=== PATIENT | male | born 1965 | race African-American/Black ===

== ENCOUNTER 2018-01-04 16:00 | Emergency (ER) | payer OTHER, SELFPAY ==
[2018-01-04] MEDS ORDERED: methylPREDNISolone Sod Succ/PF 125 MG/2 ML VIAL ONE (16:37)
[2018-01-04 16:49] LABS: #Eosinphils 0.6 thou/uL (0.0-0.7); #Lymphocytes 1.3 thou/uL (1.20-3.40); #Monocytes 0.6 thou/uL (0.11-0.59); #Neutrophils 2.7 thou/uL (1.40-6.50); %Basophils 0.8 % (0.0-1.0); %Eosinophils 11.3 % (0.0-10.0); %Lymphocytes 25.1 % (21.0-51.0); %Monocytes 10.6 % (0.0-10.0); %Neutrophils 52.2 % (42.0-75.0); Hemoglobin 15.8 g/dL (14.0-18.0); Mean Corpuscular HGB CONC 33.6 g/dL (32.0-36.0); Mean Corpuscular Hemoglobin 34.1 pg (27.0-31.0); Mean Platelet Volume 7.4 fL (7.4-10.4); Platelet Count 191 thou/uL (130-400); RBC Distribution Width 12.1 % (11.5-14.5); Red Blood Cell (RBC) Count 4.62 mill/uL (4.70-6.10); White Blood Cell (WBC) Count 5.2 thou/uL (4.8-10.8)
[2018-01-04 17:13] LABS: CKMB 1.6 ng/mL (0-6.6); Troponin I Less than 0.010 ng/mL (< 0.028)
[2018-01-04 17:16] LABS: ALT (SGPT) 14 U/L (8-55); AST (SGOT) 27 U/L (5-34); Albumin 3.7 g/dL (3.5-5.0); Alkaline Phosphatase 73 U/L (40-150); Anion Gap 17 mmol/L (10-20); BUN (Urea Nitrogen) 24 mg/dL (8.4-25.7); Bilirubin, Total 0.4 mg/dL (0.2-1.2); CK (CPK) 76 U/L (30-200); Calc. Creatinine Clearance 0 mL/min (70-130); Calcium 9.3 mg/dL (7.8-10.44); Carbon Dioxide 20 mmol/L (22-29); Chloride 107 mmol/L (98-107); Estimated GFR-MDRD 75; Globulin 3.1 g/dL (2.4-3.5); Glucose 195 mg/dL (70-105); Potassium 4.6 mmol/L (3.5-5.1); Protein, Total 6.8 g/dL (6.0-8.3); Sodium 139 mmol/L (136-145)
--- NOTE | 2018-01-04 17:25 | RAD ---
SINGLE VIEW OF THE CHEST: Comparison: 02-05-15 History: Shortness of breath. FINDINGS: Single view of the chest shows a normal sized cardiomediastinal silhouette. There is hyperexpansion o f the lungs which may be secondary to COPD. Bilateral perihilar fullness likely represents pulmonary vasculature. The bones are unremarkable. IMPRESSION: No evidence of acute cardiopulmonary disease. POS: [facility]
== END 2018-01-04 19:07 | disposition home or self-care (01) ==
LOC: ERS 16:00
DX: J98.01 Acute bronchospasm (principal); J40 Bronchitis, not specified as acute or chronic; I10 Essential (primary) hypertension; F17.210 Nicotine dependence, cigarettes, uncomplicated; Z71.6 Tobacco abuse counseling
CPT/HCPCS: 36415; 71045; 80053; 82550; 82553; 84484; 85025; 93005; 94640; 94760; 96374; 99406; J2930; J7620

== ENCOUNTER 2018-04-13 15:19 | Emergency (ER) | payer SELFPAY ==
[2018-04-13 16:15] LABS: #Lymphocytes 0.9 thou/uL (1.20-3.40); #Monocytes 0.7 thou/uL (0.11-0.59); #Neutrophils 7.3 thou/uL (1.40-6.50); %Basophils 0.2 % (0.0-1.0); %Eosinophils 0.3 % (0.0-10.0); %Lymphocytes 9.5 % (21.0-51.0); %Monocytes 8.1 % (0.0-10.0); %Neutrophils 81.9 % (42.0-75.0); Hemoglobin 17.7 g/dL (14.0-18.0); Mean Corpuscular HGB CONC 33.2 g/dL (32.0-36.0); Mean Corpuscular Hemoglobin 33.7 pg (27.0-31.0); Platelet Count 178 thou/uL (130-400); RBC Distribution Width 11.5 % (11.5-14.5); Red Blood Cell (RBC) Count 5.27 mill/uL (4.70-6.10); White Blood Cell (WBC) Count 8.9 thou/uL (4.8-10.8)
--- NOTE | 2018-04-13 16:33 | RAD ---
PORTABLE CHEST ONE VIEW: Date: 04-13-18 Time: 3:17 p.m. History: Hypotension, dyspnea. FINDINGS: Comparison made with exam of 01-04-18. The heart size is normal. Changes of COPD are again seen. No lobar consolidation, pneumothoraces or p leural effusions are identified. IMPRESSION: COPD. No acute process. POS: [facility]
[2018-04-13 16:37] LABS: ALT (SGPT) 22 U/L (8-55); AST (SGOT) 22 U/L (5-34); Albumin 4.7 g/dL (3.5-5.0); Alkaline Phosphatase 88 U/L (40-150); Anion Gap 24 mmol/L (10-20); BUN (Urea Nitrogen) 22 mg/dL (8.4-25.7); Bilirubin, Total 0.8 mg/dL (0.2-1.2); Calc. Creatinine Clearance 0 mL/min (70-130); Calcium 10.5 mg/dL (7.8-10.44); Carbon Dioxide 18 mmol/L (22-29); Chloride 101 mmol/L (98-107); Estimated GFR-MDRD 32; Globulin 3.6 g/dL (2.4-3.5); Glucose 113 mg/dL (70-105); Magnesium 2.6 mg/dL (1.6-2.6); Potassium 4.7 mmol/L (3.5-5.1); Protein, Total 8.3 g/dL (6.0-8.3); Sodium 138 mmol/L (136-145)
[2018-04-13 16:42] LABS: CKMB 3.5 ng/mL (0-6.6)
[2018-04-13 16:50] LABS: Troponin I Less than 0.010 ng/mL (< 0.028)
[2018-04-13 17:40] LABS: Amphetamine Not Detected (NotDetected); Barbiturates Screen Not Detected (NotDetected); Benzodiazepine Screen Not Detected (NotDetected); Cocaine Metabolite Screen Detected (NotDetected); Medtox Control Line Valid? VALID (VALID); Medtox Reader # READER 1; Methadone Not Detected (NotDetected); Methamphetamine Not Detected (NotDetected); Opiate Screen Not Detected (NotDetected); Oxycodone Screen Not Detected (NotDetected); Phencyclidine (PCP) Not Detected (NotDetected); THC/Cannabinoid Screen Not Detected (NotDetected); Tricyclic Screen Not Detected (NotDetected)
[2018-04-13 19:13] LABS: Troponin I Less than 0.010 ng/mL (< 0.028)
== END 2018-04-13 19:20 | disposition home or self-care (01) ==
LOC: ERS 15:19
DX: F14.10 Cocaine abuse, uncomplicated (principal); J45.909 Unspecified asthma, uncomplicated; I10 Essential (primary) hypertension; F17.210 Nicotine dependence, cigarettes, uncomplicated
CPT/HCPCS: 36415; 71045; 80053; 80306; 82553; 83735; 84484; 85025; 93005; 96360; 96361

== ENCOUNTER 2018-09-02 13:09 | Emergency (ER) | payer SELFPAY ==
[2018-09-02 13:52] LABS: #Eosinphils 0.3 thou/uL (0.0-0.7); #Lymphocytes 0.9 thou/uL (1.20-3.40); #Monocytes 0.4 thou/uL (0.11-0.59); #Neutrophils 1.5 thou/uL (1.40-6.50); %Basophils 0.2 % (0.0-1.0); %Eosinophils 8.8 % (0.0-10.0); %Lymphocytes 28.6 % (21.0-51.0); %Monocytes 14.2 % (0.0-10.0); %Neutrophils 48.3 % (42.0-75.0); Hemoglobin 17.5 g/dL (14.0-18.0); Platelet Count 159 thou/uL (130-400); RBC Distribution Width 11.5 % (11.5-14.5); Red Blood Cell (RBC) Count 5.31 mill/uL (4.70-6.10)
[2018-09-02 14:15] LABS: ALT (SGPT) 17 U/L (8-55); AST (SGOT) 32 U/L (5-34); Albumin 4.3 g/dL (3.5-5.0); Alkaline Phosphatase 73 U/L (40-150); Anion Gap 15 mmol/L (10-20); BUN (Urea Nitrogen) 17 mg/dL (8.4-25.7); Calc. Creatinine Clearance 0 mL/min (70-130); Calcium 9.5 mg/dL (7.8-10.44); Carbon Dioxide 26 mmol/L (22-29); Chloride 101 mmol/L (98-107); Estimated GFR-MDRD 77; Globulin 3.8 g/dL (2.4-3.5); Glucose 98 mg/dL (70-105); Protein, Total 8.1 g/dL (6.0-8.3); Sodium 138 mmol/L (136-145)
--- NOTE | 2018-09-02 14:44 | RAD ---
CHEST ONE VIEW: HISTORY: Shortness of breath, possibly chronic. COMPARISON: 04/13/2018 FINDINGS: Normal cardiac silhouette. Pulmonary vessels and hilum are normal. Costophrenic angles are clear. Lungs are hyperinflated. No consolidation or mass. No pneumothorax or osseous abnormalities. IMPRESSION: 1. No acute cardiopulmonary process. 2. Stable hyperinflation. POS: [facility]
--- NOTE | 2018-09-02 14:50 | RAD ---
TWO VIEWS RIGHT HIP: DATE: 09/02/2018. HISTORY: Right hip pain. This has been ongoing for 6-7 months. FINDINGS: There are a few lucencies seen within the region of the femoral head and neck junction as well as in the femoral head probably related to mild subchondral cystic changes. There is minimal joint space n arrowing, and these findings are likely attributable to mild osteoarthritis. There is no evidence of a fracture or dislocation involving the right hip. No other osseous abnormality. IMPRESSION: Minimal osteoarthritis right hip. No fracture or dislocation is seen. POS: [facility]
== END 2018-09-02 16:11 | disposition home or self-care (01) ==
LOC: ERS 13:09
DX: M25.551 Pain in right hip (principal); R09.81 Nasal congestion; F17.210 Nicotine dependence, cigarettes, uncomplicated; I10 Essential (primary) hypertension; J45.909 Unspecified asthma, uncomplicated
CPT/HCPCS: 36415; 71045; 80053; 85025

== ENCOUNTER 2022-08-01 07:46 | Emergency (ER) | payer SELFPAY ==
[2022-08-01] MEDS ORDERED: methylPREDNISolone Sod Succ/PF 125 MG/2 ML VIAL ONE (09:14)
[2022-08-01 09:48] LABS: Hemoglobin 17.9 g/dL (14.0-18.0); Mean Corpuscular HGB CONC 32.5 g/dL (32.0-36.0); Mean Corpuscular Hemoglobin 34.7 pg (27.0-31.0); Mean Platelet Volume 9.2 fL (7.4-10.4); Platelet Count 145 10x3/uL (130-400); RBC Distribution Width 12.4 % (11.5-14.5); Red Blood Cell (RBC) Count 5.17 mill/uL (4.70-6.10); White Blood Cell (WBC) Count 5.5 10x3/uL (4.8-10.8)
[2022-08-01 10:13] LABS: Eosinophils 4 % (0-10); Lymphocytes 12 % (21-51); MDiff Complete? YES; Macrocytosis SLIGHT = 6-15 cells (100X) (0-5/hpf); Monocytes 7 % (0-10); Neutrophil 66 % (42-75); Platelet Morphology Comment Appears Adequate; Reactive Lymphocytes 11 % (0-10)
[2022-08-01 10:25] LABS: Albumin 3.7 g/dL (3.5-5.0)
[2022-08-01 10:26] LABS: Calcium 9.2 mg/dL (7.8-10.44); Chloride 108 mmol/L (98-107); Sodium 141 mmol/L (136-145)
[2022-08-01 10:27] LABS: Globulin 2.5 g/dL (2.4-3.5); Glucose 77 mg/dL (70-105); Protein, Total 6.2 g/dL (6.0-8.3)
[2022-08-01 10:29] LABS: Anion Gap 16 mmol/L (10-20); Carbon Dioxide 22 mmol/L (22-29)
[2022-08-01 10:30] LABS: Alkaline Phosphatase 74 U/L (40-110); Calc. Creatinine Clearance 0 mL/min (70-130); Estimated GFR 100
[2022-08-01 10:31] LABS: BUN (Urea Nitrogen) 10 mg/dL (8.4-25.7)
[2022-08-01 10:32] LABS: AST (SGOT) 21 U/L (5-34)
[2022-08-01 10:33] LABS: ALT (SGPT) 20 U/L (8-55)
== END 2022-08-01 11:11 | disposition home or self-care (01) ==
LOC: ERS 07:46
DX: J44.1 Chronic obstructive pulmonary disease with (acute) exacerbation (principal); R06.00 Dyspnea, unspecified; M54.50 Low back pain, unspecified; I10 Essential (primary) hypertension; F17.210 Nicotine dependence, cigarettes, uncomplicated
CPT/HCPCS: 36415; 71045; 80053; 83880; 84484; 85025; 93005; 96374; J2930; J7620

== ENCOUNTER 2024-02-12 18:12 | Inpatient (IN) | payer SELFPAY ==
[~2024-02-12 18:12] MED LIST: Iopamidol-370 76% 500 ML MDV (1 ML CHARGE) ONE
[2024-02-12 18:47] LABS: #Basophils Less than 0.03 10x3/uL (0.0-0.2); %Basophils 0.4 % (0.0-1.0); %Eosinophils 6.9 % (0.0-10.0); %Lymphocytes 26.7 % (21.0-51.0); %Monocytes 9.1 % (0.0-10.0); %Neutrophils 56.7 % (42.0-75.0); Hematocrit 59.2 % (42.0-52.0); Hemoglobin 19.1 g/dL (14.0-18.0); Mean Corpuscular HGB CONC 32.3 g/dL (32.0-36.0); Mean Corpuscular Hemoglobin 32.4 pg (27.0-31.0); Mean Corpuscular Volume 100.5 fL (78.0-98.0); Mean Platelet Volume 10.7 fL (7.4-10.4); Platelet Count 155 10x3/uL (130-400); RBC Distribution Width 13.7 % (11.5-14.5); Red Blood Cell (RBC) Count 5.89 mill/uL (4.70-6.10)
[2024-02-12 18:58] LABS: INR-International Normal Ratio 1.1; Prothrombin Time 13.9 sec (12.0-14.7)
[2024-02-12 19:06] LABS: ALT (SGPT) 61 U/L (8-55); AST (SGOT) 44 U/L (5-34); Albumin 3.6 g/dL (3.5-5.0); Alkaline Phosphatase 84 U/L (40-110); Anion Gap 17 mmol/L (10-20); BUN (Urea Nitrogen) 23 mg/dL (8.4-25.7); CK (CPK) 68 U/L (30-200); Calc. Creatinine Clearance 0 mL/min (70-130); Calcium 9.6 mg/dL (7.8-10.44); Carbon Dioxide 28 mmol/L (22-29); Chloride 109 mmol/L (98-107); Estimated GFR 68; Globulin 2.9 g/dL (2.4-3.5); Glucose 161 mg/dL (70-105); Potassium 4.7 mmol/L (3.5-5.1); Protein, Total 6.5 g/dL (6.0-8.3); Sodium 149 mmol/L (136-145)
[2024-02-12 19:11] LABS: Lipase 7 U/L (8-78)
[2024-02-12] MEDS ORDERED: Furosemide 40 MG (4 mL) VIAL ONE (19:11)
[2024-02-12] MEDS ORDERED: methylPREDNISolone Sod Succ/PF 125 MG/2 ML VIAL ONE (19:11)
[2024-02-12 19:12] LABS: Acetaminophen Less than 10 mcg/mL (10.0-30.0); Alcohol Less than 10.0 mg/dL (Less than 10); Salicylate Less than 8.0 mg/dL (15.0-30.0)
[2024-02-12 19:14] LABS: Troponin I 0.037 ng/mL (< 0.028)
[2024-02-12] MEDS ORDERED: Ipratropium/Albuterol 3 ML NEB ONE (19:18)
[2024-02-12 19:23] LABS: Actual Bicarbonate (HCO3v) 28.6 mEq/L (22-28); Base Excess -0.2 mEq/L (-2.0 to +3.0); Calcium, Ionized (venous) 1.13 mmol/L (1.16-1.32); Chloride (VBG) 104 mmol/L (98-106); Hematocrit-VBG 52 % (42.0-52.0); Hemoglobin (Hb) 17.8 g/dL (13.1-17.2); Potassium (VBG) 4.98 mmol/L (3.70-5.30); Sodium 142 mmol/L (133-146); pH (venous) 7.277 (7.32-7.43)
[2024-02-12 19:48] LABS: Influenza A by NAA Not Detected (NotDetected); Influenza B by NAA Not Detected (NotDetected); SARS-CoV-2 NAA Rapid Test Not Detected (NotDetected)
[2024-02-12] MEDS ORDERED: Heparin 25,000 units/D5W 500 ML ONE (20:50)
[2024-02-12] MEDS ORDERED: Heparin 5,000 UNITS/ML VIAL ONE (21:02)
[2024-02-12] MEDS ORDERED: Ipratropium/Albuterol 3 ML NEB NEB PRN (21:41)
[2024-02-12] MEDS ORDERED: Lorazepam 2 MG/ML VIAL SLOW IVP PRN (21:42)
[2024-02-12] MEDS ORDERED: Heparin 10,000 UNITS/ 10 ML VIAL SLOW IVP SCH (21:45)
[2024-02-12] MEDS ORDERED: Heparin 25,000 units/D5W 500 ML IVPB SCH (21:45)
[2024-02-12] MEDS ORDERED: Electrolyte Replacement Protocol 1 EACH FS PRN (21:49)
[2024-02-12 23:13] VITALS: BMI 20.5
[2024-02-12] MEDS: Lactated Ringer's 1,000 ML IV SCH (23:18)
[2024-02-12] MEDS: Amlodipine 5 MG TAB PO SCH (23:19)
[2024-02-12] MEDS: Magnesium 2 GM/50 ML(in water) 2 GM in Premix 1 BAG IVPB SCH (23:19)
[2024-02-12 23:44] LABS: Hematocrit 58.7 % (42.0-52.0); Hemoglobin 18.5 g/dL (14.0-18.0); Platelet Count 142 10x3/uL (130-400)
[2024-02-12 23:52] LABS: Bacteria/HPF None Seen HPF (None Seen); Bilirubin Negative (Negative); Blood, Urine 1+ (Negative); Clarity Clear (Clear); Glucose, Urine (Dipstick) Normal (Negative); Ketone, Urine Negative (Negative); Leukocyte 75 Leu/uL (Negative); Nitrite Negative (Negative); Protein, Urine (Dipstick) Negative (Neg-Trace); RBC/HPF 0-3 HPF (0-3); Specific Gravity, Urine 1.012 (1.002-1.036); Squamous Epithelial None Seen HPF (0-3); Urobilinogen Normal mg/dL (Less than 2); pH, Urine 5.5 (5.0-9.0)
[2024-02-13 00:01] LABS: Amphetamine Not Detected (NotDetected); Barbiturates Screen Not Detected (NotDetected); Benzodiazepine Screen Not Detected (NotDetected); Cocaine Metabolite Screen Detected (NotDetected); Methadone Not Detected (NotDetected); Methamphetamine Not Detected (NotDetected); Opiate Screen Not Detected (NotDetected); Oxycodone Screen Not Detected (NotDetected); Phencyclidine (PCP) Not Detected (NotDetected); THC/Cannabinoid Screen Not Detected (NotDetected); Tricyclic Screen Not Detected (NotDetected)
[2024-02-13] MEDS: Ipratropium/Albuterol 3 ML NEB NEB SCH (00:06)
[2024-02-13 00:14] LABS: Lactic Acid 3.1 mmol/L (0.5-2.2)
[2024-02-13 00:15] LABS: PTT Greater than 250.0 sec (22.9-36.1)
[2024-02-13 00:23] LABS: Troponin I 0.036 ng/mL (< 0.028)
[2024-02-13] MEDS ORDERED: Nicotine 14 MG PATCH TD PRN (01:06)
[2024-02-13] MEDS ORDERED: Ondansetron PF 4 MG/2 ML Vial IVP PRN (01:06)
[2024-02-13 04:16] LABS: INR-International Normal Ratio 1.1; Prothrombin Time 14.1 sec (12.0-14.7)
[2024-02-13 04:17] LABS: PTT 31.8 sec (22.9-36.1)
[2024-02-13 04:19] LABS: D-Dimer Test 0.33 mcg/mL (0.27-0.43)
[2024-02-13 04:20] LABS: #Basophils Less than 0.03 10x3/uL (0.0-0.2); #Eosinphils Less than 0.03 10x3/uL (0.0-0.7); %Basophils 0.2 % (0.0-1.0); %Lymphocytes 9.1 % (21.0-51.0); %Monocytes 1.7 % (0.0-10.0); %Neutrophils 88.6 % (42.0-75.0); Hematocrit 55.7 % (42.0-52.0); Hemoglobin 17.6 g/dL (14.0-18.0); Mean Corpuscular HGB CONC 31.6 g/dL (32.0-36.0); Mean Corpuscular Hemoglobin 33.1 pg (27.0-31.0); Mean Corpuscular Volume 104.9 fL (78.0-98.0); Mean Platelet Volume 10.7 fL (7.4-10.4); Platelet Count 144 10x3/uL (130-400); RBC Distribution Width 13.4 % (11.5-14.5); Red Blood Cell (RBC) Count 5.31 mill/uL (4.70-6.10)
[2024-02-13 04:43] LABS: ALT (SGPT) 55 U/L (8-55); AST (SGOT) 28 U/L (5-34); Albumin 3.1 g/dL (3.5-5.0); Alkaline Phosphatase 69 U/L (40-110); Anion Gap 15 mmol/L (10-20); BUN (Urea Nitrogen) 20 mg/dL (8.4-25.7); Bilirubin, Total 0.7 mg/dL (0.2-1.2); Calc. Creatinine Clearance 76 mL/min (70-130); Calcium 8.9 mg/dL (7.8-10.44); Carbon Dioxide 30 mmol/L (22-29); Chloride 106 mmol/L (98-107); Estimated GFR 83; Globulin 2.6 g/dL (2.4-3.5); Glucose 226 mg/dL (70-105); Potassium 4.3 mmol/L (3.5-5.1); Protein, Total 5.7 g/dL (6.0-8.3); Sodium 147 mmol/L (136-145)
[2024-02-13 04:44] LABS: Troponin I 0.029 ng/mL (< 0.028)
[2024-02-13] MEDS: Famotidine/PF 20 mg/2ml Vial SLOW IVP SCH (08:40)
[2024-02-13] MEDS: Thiamine 100 MG TAB PO SCH (08:56)
[2024-02-13] MEDS: Folic Acid 1 MG TAB PO SCH (08:56)
[2024-02-13] MEDS: Cyanocobalamin (Vitamin B-12) 1,000 MCG TAB PO SCH (08:56)
[2024-02-13] MEDS: Amlodipine 5 MG TAB PO SCH (08:57)
[2024-02-13] MEDS: Famotidine 20 MG TAB PO SCH (08:57)
[2024-02-13] MEDS: guaiFENesin ER 600 MG TAB PO SCH (08:58)
[2024-02-13] MEDS: Enoxaparin 60 MG (0.6 mL) SYRINGE SC SCH ×2 (11:09→20:11)
[2024-02-13] MEDS: methylPREDNISolone Sod Succ 40 MG VIAL IVP SCH (17:36)
[2024-02-14 22:11] LABS: Hematocrit 56.9 % (42.0-52.0); Platelet Count 121 10x3/uL (130-400)
[2024-02-15] MEDS ORDERED: WARFARIN IVPB PRN (09:28)
[2024-02-15 14:06] LABS: Cardiolipin IgA Ab 2.6 APL-U/mL (<14 Negative); Cardiolipin IgG Ab 1.2 GPL-U/mL (<10 Negative); Cardiolipin IgM Ab Less than 0.9 MPL-U/mL (<10 Negative); EliA APS New Method **** NEW METHOD ****
[2024-02-15] MEDS: Warfarin Sodium 5 MG TAB PO SCH (17:37)
[2024-02-15] MEDS: Enoxaparin 80 MG (0.8 mL) SYRINGE SC SCH (20:28)
[2024-02-15] MEDS: methylPREDNISolone Sod Succ 40 MG VIAL IVP SCH (20:28)
[2024-02-16 05:47] LABS: INR-International Normal Ratio 1.1; Prothrombin Time 14.2 sec (12.0-14.7)
[2024-02-16] MEDS: Lactated Ringer's 1,000 ML IV SCH (22:11)
[2024-02-16] MEDS: hydrALAZINE 20 MG/ML VIAL SLOW IVP PRN (23:23)
[2024-02-17 05:31] LABS: INR-International Normal Ratio 1.3; PTT 30.5 sec (22.9-36.1); Prothrombin Time 15.8 sec (12.0-14.7)
[2024-02-17] MEDS: Warfarin Sodium 10 MG TAB PO SCH (16:24)
[2024-02-18 04:33] LABS: PTT 34.3 sec (22.9-36.1); Prothrombin Time 22.8 sec (12.0-14.7)
[2024-02-18] MEDS: predniSONE 20 MG TAB PO SCH (11:22)
[2024-02-18 11:54] LABS: HEX PHOS LA Tube 1 42.5 SEC; HEX PHOS LA Tube 2 41.1 SEC; Hexagonal Phospholipid Neut 1.4 SEC (0-8.0)
[2024-02-18 13:44] VITALS: BMI 21.3
[2024-02-18] MEDS: Warfarin Sodium 5 MG TAB PO SCH (16:24)
[2024-02-19 06:09] LABS: INR-International Normal Ratio 2.7; PTT 37.1 sec (22.9-36.1); Prothrombin Time 28.8 sec (12.0-14.7)
[2024-02-19] MEDS: predniSONE 20 MG TAB PO SCH (08:36)
[2024-02-20 08:39] LABS: INR-International Normal Ratio 2.4; PTT 34.5 sec (22.9-36.1); Prothrombin Time 25.9 sec (12.0-14.7)
[2024-02-20 11:57] LABS: #Basophils Less than 0.03 10x3/uL (0.0-0.2); %Basophils 0.1 % (0.0-1.0); %Eosinophils 1.8 % (0.0-10.0); %Lymphocytes 10.3 % (21.0-51.0); %Neutrophils 78.2 % (42.0-75.0); Hematocrit 52.9 % (42.0-52.0); Hemoglobin 16.7 g/dL (14.0-18.0); Mean Corpuscular HGB CONC 31.6 g/dL (32.0-36.0); Mean Corpuscular Hemoglobin 33.3 pg (27.0-31.0); Mean Corpuscular Volume 105.6 fL (78.0-98.0); Mean Platelet Volume 11.4 fL (7.4-10.4); Platelet Count 143 10x3/uL (130-400); Red Blood Cell (RBC) Count 5.01 mill/uL (4.70-6.10)
[2024-02-21 07:13] LABS: INR-International Normal Ratio 2.2; PTT 32.5 sec (22.9-36.1); Prothrombin Time 24.4 sec (12.0-14.7)
[2024-02-21] MEDS ORDERED: Warfarin Sodium 5 MG TAB PO SCH (09:23)
[2024-02-21] MEDS ORDERED: Warfarin Sodium 2.5 MG TAB PO SCH (09:30)
[2024-02-21] MEDS: Acetaminophen 325 MG TAB PO PRN (09:43)
[2024-02-21] MEDS: Warfarin Sodium 7.5 MG TAB PO SCH (17:09)
[2024-02-21 20:57] LABS: RBC/HPF 21-50 HPF (0-3); Squamous Epithelial 0-3 HPF (0-3); WBC/HPF Greater than 50 HPF (0-3)
[2024-02-21 21:03] LABS: Bacteria/HPF 4+ HPF (None Seen)
[2024-02-22 06:06] LABS: INR-International Normal Ratio 2.3; PTT 36.7 sec (22.9-36.1)
[2024-02-22 09:51] LABS: Bilirubin Negative (Negative); Clarity Turbid (Clear); Glucose, Urine (Dipstick) Negative (Negative); Ketone, Urine Negative (Negative); Leukocyte 500 Leu/uL (Negative); Nitrite 2+ (Negative); Protein, Urine (Dipstick) 10 mg/dL (Neg-Trace); Specific Gravity, Urine 1.012 (1.002-1.036); Urobilinogen 3 mg/dL (Less than 2)
[2024-02-22 09:52] LABS: Blood, Urine 2+ (Negative)
[2024-02-22] MEDS: cefTRIAXone\\ROCEPHIN 2 GM in Sodium Chloride 0.9% 100 ML IVPB SCH (12:20)
[2024-02-22] MEDS: Ondansetron ODT 4 MG TAB PO PRN (21:35)
[2024-02-22 21:36] LABS: Anion Gap 17 mmol/L (10-20); BUN (Urea Nitrogen) 24 mg/dL (8.4-25.7); Calc. Creatinine Clearance 109 mL/min (70-130); Calcium 8.9 mg/dL (7.8-10.44); Carbon Dioxide 28 mmol/L (22-29); Chloride 96 mmol/L (98-107); Estimated GFR 104; Glucose 106 mg/dL (70-105); Magnesium 1.9 mg/dL (1.6-2.6); Potassium 4.6 mmol/L (3.5-5.1); Sodium 136 mmol/L (136-145)
[2024-02-22] MEDS: Lidocaine 2% Viscous Solution 10 ML, Aluminum & Magnesium Hydroxide 30 ML SSW SCH (21:36)
[2024-02-22 21:48] LABS: Troponin I 0.022 ng/mL (< 0.028)
[2024-02-23 02:39] LABS: Actual Bicarbonate (HCO3v) 30.8 mEq/L (22-28); Base Excess 3.8 mEq/L (-2.0 to +3.0); Calcium, Ionized (venous) 1.15 mmol/L (1.16-1.32); Chloride (VBG) 94 mmol/L (98-106); Hematocrit-VBG 46 % (42.0-52.0); Hemoglobin (Hb) 15.8 g/dL (13.1-17.2); Potassium (VBG) 4.48 mmol/L (3.70-5.30); Sodium 136 mmol/L (133-146); pH (venous) 7.363 (7.32-7.43)
[2024-02-23] MEDS: Magnesium 2 GM/50 ML(in water) 2 GM in Premix 1 BAG IVPB SCH (02:55)
[2024-02-23 05:23] LABS: #Basophils Less than 0.03 10x3/uL (0.0-0.2); %Basophils 0.1 % (0.0-1.0); %Eosinophils 3.3 % (0.0-10.0); %Lymphocytes 11.7 % (21.0-51.0); %Neutrophils 70.2 % (42.0-75.0); Hematocrit 48.3 % (42.0-52.0); Hemoglobin 15.4 g/dL (14.0-18.0); Mean Corpuscular HGB CONC 31.9 g/dL (32.0-36.0); Mean Corpuscular Hemoglobin 33.1 pg (27.0-31.0); Mean Corpuscular Volume 103.9 fL (78.0-98.0); Mean Platelet Volume 10.5 fL (7.4-10.4); Platelet Count 138 10x3/uL (130-400); RBC Distribution Width 13.1 % (11.5-14.5); Red Blood Cell (RBC) Count 4.65 mill/uL (4.70-6.10)
[2024-02-23 05:35] LABS: INR-International Normal Ratio 2.3; PTT 36.7 sec (22.9-36.1)
[2024-02-23 05:57] LABS: Magnesium 2.5 mg/dL (1.6-2.6)
[2024-02-23] MEDS: Apixaban 5 MG TAB PO SCH (20:52)
[2024-02-23] MEDS: Cephalexin 250 MG CAP PO SCH (20:52)
[2024-02-24 05:10] LABS: #Basophils 0.03 10x3/uL (0.0-0.2); %Basophils 0.4 % (0.0-1.0); %Eosinophils 3.2 % (0.0-10.0); %Lymphocytes 13.4 % (21.0-51.0); %Monocytes 14.1 % (0.0-10.0); %Neutrophils 67.3 % (42.0-75.0); Hematocrit 49.1 % (42.0-52.0); Hemoglobin 15.9 g/dL (14.0-18.0); Mean Corpuscular HGB CONC 32.4 g/dL (32.0-36.0); Mean Corpuscular Hemoglobin 32.6 pg (27.0-31.0); Mean Corpuscular Volume 100.6 fL (78.0-98.0); Platelet Count 152 10x3/uL (130-400); RBC Distribution Width 12.9 % (11.5-14.5); Red Blood Cell (RBC) Count 4.88 mill/uL (4.70-6.10)
[2024-02-24 05:25] LABS: INR-International Normal Ratio 2.4; Prothrombin Time 26.3 sec (12.0-14.7)
[2024-02-24 05:26] LABS: PTT 43.6 sec (22.9-36.1)
[2024-02-24 07:21] VITALS: TEMP 98.3
[2024-02-24 15:11] VITALS: BP 113/75
== END 2024-02-24 17:41 | disposition home or self-care (01) | DRG 175 ==
LOC: ERS 18:12 → CCU 20:37 → 2NO 22:24 → MSONC 02-15 15:03
PROVIDERS: ADMIT Student in an Organized Health Care Education/Training Program; ATTEND Internal Medicine Critical Care Medicine
DX: I26.99 Other pulmonary embolism without acute cor pulmonale (principal); I21.4 Non-ST elevation (NSTEMI) myocardial infarction; J96.01 Acute respiratory failure with hypoxia; Z59.00 Homelessness unspecified; E87.1 Hypo-osmolality and hyponatremia; E87.20 Acidosis, unspecified; N39.0 Urinary tract infection, site not specified; E87.0 Hyperosmolality and hypernatremia; F17.210 Nicotine dependence, cigarettes, uncomplicated; R31.9 Hematuria, unspecified; J47.9 Bronchiectasis, uncomplicated; B96.20 Unspecified Escherichia coli [E. coli] as the cause of diseases classified elsewhere; F14.10 Cocaine abuse, uncomplicated; J44.9 Chronic obstructive pulmonary disease, unspecified; I27.20 Pulmonary hypertension, unspecified; I11.9 Hypertensive heart disease without heart failure; G47.33 Obstructive sleep apnea (adult) (pediatric); Z98.890 Other specified postprocedural states; Z91.148 Patient's other noncompliance with medication regimen for other reason; Z71.51 Drug abuse counseling and surveillance of drug abuser
CPT/HCPCS: 36415; 36416; 71045; 71275; 76770; 80048; 80053; 80306; 80307; 81001; 81015; 82550; 82805; 83090; 83605; 83690; 83735; 83880; 84484; 85014; 85018; 85025; 85049; 85300; 85303; 85305; 85307; 85598; 85610; 85730; 86147; 87040; 87077; 87081; 87086; 87186; 87430; 93005; 93010; 93306; 93923; 93970; 94640; 94760; 96374; 96375; J0360; J0696; J1644; J1650; J1940; J2920; J2930; J3475; J3490; J7120; J7512; J7620; Q0162; Q9967

== ENCOUNTER 2024-08-15 12:58 | Emergency (ER) | payer SELFPAY ==
[2024-08-15] MEDS ORDERED: Iopamidol-370 76% 500 ML MDV (1 ML CHARGE) ONE (13:56)
[2024-08-15 14:17] LABS: #Basophils Less than 0.03 10x3/uL (0.0-0.2); %Basophils 0.5 % (0.0-1.0); %Eosinophils 6.2 % (0.0-10.0); %Lymphocytes 21.6 % (21.0-51.0); %Monocytes 10.5 % (0.0-10.0); Hematocrit 56.9 % (42.0-52.0); Hemoglobin 18.2 g/dL (14.0-18.0); Mean Corpuscular Hemoglobin 31.9 pg (27.0-31.0); Mean Corpuscular Volume 99.8 fL (78.0-98.0); Mean Platelet Volume 10.2 fL (7.4-10.4); Platelet Count 180 10x3/uL (130-400); RBC Distribution Width 13.2 % (11.5-14.5)
[2024-08-15 14:33] LABS: ALT (SGPT) 20 U/L (8-55); AST (SGOT) 18 U/L (5-34); Albumin 3.2 g/dL (3.5-5.0); Alkaline Phosphatase 77 U/L (40-110); Anion Gap 10 mmol/L (10-20); BUN (Urea Nitrogen) 15 mg/dL (8.4-25.7); Bilirubin, Total 0.7 mg/dL (0.2-1.2); Calc. Creatinine Clearance 0 mL/min (70-130); Calcium 8.6 mg/dL (7.8-10.44); Carbon Dioxide 27 mmol/L (22-29); Chloride 103 mmol/L (98-107); Estimated GFR 79; Globulin 2.7 g/dL (2.4-3.5); Glucose 103 mg/dL (70-105); Magnesium 2.1 mg/dL (1.6-2.6); Potassium 3.5 mmol/L (3.5-5.1); Protein, Total 5.9 g/dL (6.0-8.3); Sodium 136 mmol/L (136-145)
[2024-08-15 14:34] LABS: Troponin I Less than 0.010 ng/mL (< 0.028)
== END 2024-08-15 20:23 | disposition home or self-care (01) ==
LOC: ERS 12:58
DX: J44.9 Chronic obstructive pulmonary disease, unspecified (principal); I10 Essential (primary) hypertension; F17.210 Nicotine dependence, cigarettes, uncomplicated; Z59.00 Homelessness unspecified
CPT/HCPCS: 36415; 71275; 80053; 83735; 83880; 84484; 85025; 93005

== ENCOUNTER 2025-03-29 14:58 | Inpatient (IN) | payer OTHER ==
[2025-03-29 15:30] LABS: Actual Bicarbonate (HCO3v) 28.7 mEq/L (22-28); Analyzer IN Cardio ER; Base Excess 2.0 mEq/L (-2.0 to +3.0); Calcium, Ionized (venous) 1.14 mmol/L (1.16-1.32); Chloride (VBG) 107 mmol/L (98-106); Hematocrit-VBG 57 % (42.0-52.0); Hemoglobin (Hb) 19.4 g/dL (13.1-17.2); Potassium (VBG) 4.20 mmol/L (3.70-5.30); Sodium 147 mmol/L (133-146)
[2025-03-29 15:47] LABS: #Basophils Less than 0.03 10x3/uL (0.0-0.2); #Eosinophils 0.11 10x3/uL (0.0-0.7); #Monocytes 0.27 10x3/uL (0.11-0.59); #Neutrophils 3.43 10x3/uL (1.40-6.50); %Basophils 0.2 % (0.0-1.0); %Eosinophils 2.4 % (0.0-10.0); %Lymphocytes 17.1 % (21.0-51.0); %Monocytes 5.9 % (0.0-10.0); %Neutrophils 74.4 % (42.0-75.0); Hematocrit 56.7 % (42.0-52.0); Hemoglobin 18.0 g/dL (14.0-18.0); Mean Corpuscular Hemoglobin 32.6 pg (27.0-31.0); Mean Corpuscular Volume 102.7 fL (78.0-98.0); Platelet Count 152 10x3/uL (130-400); Red Blood Cell (RBC) Count 5.52 mill/uL (4.70-6.10); White Blood Cell (WBC) Count 4.61 10x3/uL (4.8-10.8)
[2025-03-29 15:51] LABS: ALT (SGPT) 51 U/L (Less than 45); AST (SGOT) 34 U/L (11-34); Albumin 3.5 g/dL (3.1-4.5); Alkaline Phosphatase 69 U/L (40-110); Anion Gap 15 mmol/L (10-20); BUN (Urea Nitrogen) 20 mg/dL (8.4-25.7); Bilirubin, Total 0.9 mg/dL (0.3-1.2); Calc. Creatinine Clearance 0 mL/min (70-130); Calcium 8.5 mg/dL (7.8-10.44); Carbon Dioxide 26 mmol/L (22-29); Chloride 110 mmol/L (98-107); Globulin 2.5 g/dL (2.4-3.5); Glucose 155 mg/dL (70-105); Magnesium 1.8 mg/dL (1.6-2.6); Potassium 3.8 mmol/L (3.5-5.1); Sodium 147 mmol/L (136-145)
[2025-03-29 15:54] LABS: Troponin I 0.190 ng/mL (< 0.028)
[2025-03-29 18:49] LABS: INR-International Normal Ratio 1.2; PTT 30.2 sec (22.9-36.1); Prothrombin Time 15.2 sec (12.0-14.7)
[2025-03-29 18:50] LABS: Acetaminophen Less than 10 mcg/mL (Less than 10); Salicylate Less than 8.0 mg/dL (Less than 8.0)
[2025-03-29] MEDS ORDERED: Enoxaparin 80 MG (0.8 mL) SYRINGE ONE (18:57)
[2025-03-29] MEDS ORDERED: Acetaminophen 325 MG TAB PO PRN (20:55)
[2025-03-29] MEDS ORDERED: Ondansetron PF 4 MG/2 ML Vial IVP PRN (20:55)
[2025-03-29] MEDS ORDERED: Senokot S 8.6-50 MG TAB PO PRN (20:55)
[2025-03-29] MEDS ORDERED: Albuterol 2.5 MG (3 mL) NEB NEB PRN (21:00)
[2025-03-29] MEDS ORDERED: Electrolyte Replacement Protocol 1 EACH FS SCH (21:00)
[2025-03-29] MEDS ORDERED: Benzonatate 100 MG CAP PO PRN (21:02)
[2025-03-29] MEDS: Furosemide 40 MG (4 mL) VIAL SLOW IVP SCH (22:33)
[2025-03-29] MEDS: Apixaban 5 MG TAB PO SCH (22:34)
[2025-03-29 23:19] LABS: Cocaine Metabolite Screen PRELIM POSITIVE (Negative); THC/Cannabinoid Screen Negative (Negative); Tricyclic Screen Negative (Negative)
[2025-03-30 01:26] LABS: Troponin I 0.238 ng/mL (< 0.028)
[2025-03-30 03:53] LABS: #Basophils Less than 0.03 10x3/uL (0.0-0.2); #Eosinophils Less than 0.03 10x3/uL (0.0-0.7); #Monocytes 0.08 10x3/uL (0.11-0.59); #Neutrophils 3.62 10x3/uL (1.40-6.50); %Basophils 0.2 % (0.0-1.0); %Eosinophils 0.2 % (0.0-10.0); %Lymphocytes 11.0 % (21.0-51.0); %Monocytes 1.9 % (0.0-10.0); %Neutrophils 86.7 % (42.0-75.0); Hematocrit 56.8 % (42.0-52.0); Hemoglobin 18.3 g/dL (14.0-18.0); Mean Corpuscular Hemoglobin 32.7 pg (27.0-31.0); Mean Corpuscular Volume 101.6 fL (78.0-98.0); Platelet Count 141 10x3/uL (130-400); Red Blood Cell (RBC) Count 5.59 mill/uL (4.70-6.10); White Blood Cell (WBC) Count 4.18 10x3/uL (4.8-10.8)
[2025-03-30 04:13] LABS: ALT (SGPT) 54 U/L (Less than 45); Albumin 3.4 g/dL (3.1-4.5); Alkaline Phosphatase 64 U/L (40-110); Anion Gap 15 mmol/L (10-20); BUN (Urea Nitrogen) 19 mg/dL (8.4-25.7); Bilirubin, Total 0.9 mg/dL (0.3-1.2); Calc. Creatinine Clearance 79 mL/min (70-130); Calcium 8.5 mg/dL (7.8-10.44); Carbon Dioxide 31 mmol/L (22-29); Cardiac Risk 3.7 (Less than 4.5); Chloride 104 mmol/L (98-107); Cholesterol 159 mg/dl (< 200 Desired); Globulin 2.5 g/dL (2.4-3.5); Glucose 158 mg/dL (70-105); HDL Cholesterol 43 mg/dL (>60 Neg Risk); LDL Cholesterol, Calculated 104 mg/dL; Magnesium 1.6 mg/dL (1.6-2.6); Potassium 3.6 mmol/L (3.5-5.1); Sodium 146 mmol/L (136-145); Triglycerides 62 mg/dL (Less than 150)
[2025-03-30 04:23] LABS: Troponin I 0.227 ng/mL (< 0.028)
[2025-03-30 04:27] LABS: AST (SGOT) 35 U/L (11-34)
[2025-03-30] MEDS: Magnesium 2 GM/50 ML(in water) 2 GM in Premix 1 BAG IVPB SCH (06:30)
[2025-03-30] MEDS: Enoxaparin 60 MG (0.6 mL) SYRINGE SC SCH (08:42)
[2025-03-30] MEDS: Aspirin Chewable 81 MG TAB PO SCH (08:42)
[2025-03-30] MEDS: Thiamine 100 MG TAB PO SCH (08:43)
[2025-04-01 07:59] LABS: #Basophils Less than 0.03 10x3/uL (0.0-0.2); #Eosinophils Less than 0.03 10x3/uL (0.0-0.7); #Monocytes 0.28 10x3/uL (0.11-0.59); #Neutrophils 11.29 10x3/uL (1.40-6.50); %Basophils 0.1 % (0.0-1.0); %Eosinophils 0.0 % (0.0-10.0); %Lymphocytes 3.0 % (21.0-51.0); %Monocytes 2.3 % (0.0-10.0); %Neutrophils 94.1 % (42.0-75.0); Hematocrit 56.2 % (42.0-52.0); Hemoglobin 17.8 g/dL (14.0-18.0); Mean Corpuscular Hemoglobin 32.9 pg (27.0-31.0); Mean Corpuscular Volume 103.9 fL (78.0-98.0); Platelet Count 145 10x3/uL (130-400); Red Blood Cell (RBC) Count 5.41 mill/uL (4.70-6.10); White Blood Cell (WBC) Count 12.00 10x3/uL (4.8-10.8)
[2025-04-01] MEDS: Enoxaparin 40 MG (0.4 mL) SYRINGE SC SCH (08:00)
[2025-04-01 08:18] LABS: Anion Gap 12 mmol/L (10-20); BUN (Urea Nitrogen) 22 mg/dL (8.4-25.7); Calc. Creatinine Clearance 104 mL/min (70-130); Carbon Dioxide 34 mmol/L (22-29); Chloride 103 mmol/L (98-107); Potassium 4.5 mmol/L (3.5-5.1); Sodium 144 mmol/L (136-145)
[2025-04-01 08:19] LABS: Calcium 8.9 mg/dL (7.8-10.44); Glucose 125 mg/dL (70-105)
[2025-04-01] MEDS: Calcium Carbonate 500 MG ChewTAB PO PRN (10:37)
[2025-04-02 06:44] VITALS: BMI 19.2
[2025-04-03 12:13] VITALS: TEMP 97.3
[2025-04-03 13:41] VITALS: BP 157/110
== END 2025-04-03 15:47 | disposition home or self-care (01) | DRG 280 ==
LOC: SUATTDRO 14:58 → ERS 14:58 → IMCU/EMU 20:20 → 2NO 03-30 21:24
PROVIDERS: ADMIT Family Medicine; ATTEND Family Medicine
DX: I11.0 Hypertensive heart disease with heart failure (principal); I50.33 Acute on chronic diastolic (congestive) heart failure; I21.A1 Myocardial infarction type 2; J96.21 Acute and chronic respiratory failure with hypoxia; E87.0 Hyperosmolality and hypernatremia; J44.1 Chronic obstructive pulmonary disease with (acute) exacerbation; Z59.00 Homelessness unspecified; F17.210 Nicotine dependence, cigarettes, uncomplicated; F12.10 Cannabis abuse, uncomplicated; F14.10 Cocaine abuse, uncomplicated; E87.8 Other disorders of electrolyte and fluid balance, not elsewhere classified; Z71.51 Drug abuse counseling and surveillance of drug abuser; Z86.711 Personal history of pulmonary embolism; Z86.718 Personal history of other venous thrombosis and embolism
CPT/HCPCS: 36415; 36416; 71045; 71275; 80048; 80053; 80061; 80306; 80307; 82805; 83036; 83735; 83880; 84484; 85025; 85610; 85730; 93005; 93306; 93798; 94644; 94660; J1650; J1940; J2919; J3475; J7620; Q9967

== ENCOUNTER 2025-05-22 14:45 | Inpatient (IN) | payer OTHER ==
[2025-05-22 15:22] LABS: #Basophils Less than 0.03 10x3/uL (0.0-0.2); #Eosinophils 0.24 10x3/uL (0.0-0.7); #Monocytes 0.52 10x3/uL (0.11-0.59); #Neutrophils 2.86 10x3/uL (1.40-6.50); %Basophils 0.4 % (0.0-1.0); %Eosinophils 5.0 % (0.0-10.0); %Lymphocytes 23.5 % (21.0-51.0); %Monocytes 10.9 % (0.0-10.0); %Neutrophils 60.0 % (42.0-75.0); Hematocrit 53.1 % (42.0-52.0); Hemoglobin 16.3 g/dL (14.0-18.0); Mean Corpuscular Hemoglobin 32.1 pg (27.0-31.0); Mean Corpuscular Volume 104.7 fL (78.0-98.0); Platelet Count 196 10x3/uL (130-400); Red Blood Cell (RBC) Count 5.07 mill/uL (4.70-6.10); White Blood Cell (WBC) Count 4.77 10x3/uL (4.8-10.8)
[2025-05-22 15:35] LABS: Actual Bicarbonate (HCO3v) 24.9 mEq/L (22-28); Base Excess 0.2 mEq/L (-2.0 to +3.0); Calcium, Ionized (venous) 1.05 mmol/L (1.16-1.32); Chloride (VBG) 107 mmol/L (98-106); Hematocrit-VBG 52 % (42.0-52.0); Hemoglobin (Hb) 17.6 g/dL (13.1-17.2); Potassium (VBG) 3.75 mmol/L (3.70-5.30); Sodium 144 mmol/L (133-146)
[2025-05-22 15:48] LABS: ALT (SGPT) 24 U/L (Less than 45); AST (SGOT) 25 U/L (11-34); Albumin 3.1 g/dL (3.1-4.5); Alkaline Phosphatase 67 U/L (40-110); Anion Gap 16 mmol/L (10-20); BUN (Urea Nitrogen) 16 mg/dL (8.4-25.7); Bilirubin, Total 0.6 mg/dL (0.3-1.2); Calc. Creatinine Clearance 0 mL/min (70-130); Calcium 9.0 mg/dL (7.8-10.44); Carbon Dioxide 22 mmol/L (22-29); Chloride 109 mmol/L (98-107); Globulin 2.6 g/dL (2.4-3.5); Glucose 137 mg/dL (70-105); Potassium 3.7 mmol/L (3.5-5.1); Sodium 143 mmol/L (136-145)
[2025-05-22] MEDS ORDERED: Albuterol 2.5 MG (0.5 mL) NEB ONE (16:07)
[2025-05-22] MEDS ORDERED: Ipratropium Bromide 2.5 ml Neb ONE (16:07)
[2025-05-22] MEDS ORDERED: Furosemide 20 MG (2 mL) VIAL ONE (16:22)
[2025-05-22] MEDS ORDERED: Aspirin Chewable 81 MG TAB ONE (16:23)
[2025-05-22] MEDS ORDERED: Guaifenesin DM 100-10/5 ML UDCUP PO PRN (21:24)
[2025-05-22] MEDS ORDERED: Ondansetron PF 4 MG/2 ML Vial IVP PRN (21:24)
[2025-05-22] MEDS ORDERED: Senokot S 8.6-50 MG TAB PO PRN (21:24)
[2025-05-22] MEDS ORDERED: Electrolyte Replacement Protocol 1 EACH FS PRN (21:24)
[2025-05-22 23:04] VITALS: BMI 17.6
[2025-05-22] MEDS: Acetaminophen 325 MG TAB PO SCH (23:45)
[2025-05-23 01:18] LABS: Influenza A by NAA Not Detected (NotDetected); Influenza B by NAA Not Detected (NotDetected); RSV by NAA Not Detected (NotDetected); SARS-CoV-2 NAA Rapid Test Not Detected (NotDetected)
[2025-05-23 04:48] LABS: #Basophils Less than 0.03 10x3/uL (0.0-0.2); #Eosinophils Less than 0.03 10x3/uL (0.0-0.7); #Monocytes 0.33 10x3/uL (0.11-0.59); #Neutrophils 5.69 10x3/uL (1.40-6.50); %Basophils 0.0 % (0.0-1.0); %Eosinophils 0.0 % (0.0-10.0); %Lymphocytes 6.9 % (21.0-51.0); %Monocytes 5.1 % (0.0-10.0); %Neutrophils 87.7 % (42.0-75.0); Hematocrit 54.9 % (42.0-52.0); Hemoglobin 16.7 g/dL (14.0-18.0); Mean Corpuscular Hemoglobin 31.9 pg (27.0-31.0); Mean Corpuscular Volume 104.8 fL (78.0-98.0); Platelet Count 195 10x3/uL (130-400); Red Blood Cell (RBC) Count 5.24 mill/uL (4.70-6.10); White Blood Cell (WBC) Count 6.49 10x3/uL (4.8-10.8)
[2025-05-23 05:06] LABS: ALT (SGPT) 20 U/L (Less than 45); AST (SGOT) 18 U/L (11-34); Albumin 2.9 g/dL (3.1-4.5); Alkaline Phosphatase 72 U/L (40-110); Anion Gap 15 mmol/L (10-20); BUN (Urea Nitrogen) 17 mg/dL (8.4-25.7); Bilirubin, Total 0.5 mg/dL (0.3-1.2); Calc. Creatinine Clearance 74 mL/min (70-130); Calcium 8.9 mg/dL (7.8-10.44); Carbon Dioxide 28 mmol/L (22-29); Cardiac Risk 3.6 (Less than 4.5); Chloride 105 mmol/L (98-107); Cholesterol 153 mg/dl (< 200 Desired); Globulin 2.7 g/dL (2.4-3.5); Glucose 154 mg/dL (70-105); HDL Cholesterol 43 mg/dL (>60 Neg Risk); LDL Cholesterol, Calculated 96 mg/dL; Magnesium 1.8 mg/dL (1.6-2.6); Potassium 3.9 mmol/L (3.5-5.1); Sodium 144 mmol/L (136-145); Triglycerides 72 mg/dL (Less than 150)
[2025-05-23] MEDS: Magnesium 2 GM/50 ML(in water) Premix IVPB SCH (05:40)
[2025-05-23] MEDS: Enoxaparin 40 MG (0.4 mL) SYRINGE SC SCH (09:30)
[2025-05-23] MEDS: cefTRIAXone\\ROCEPHIN 1 GM in Sodium Chloride 0.9% 100 ML IVPB SCH (12:21)
[2025-05-23 17:54] LABS: Cocaine Metabolite Screen PRELIM POSITIVE (Negative); THC/Cannabinoid Screen Negative (Negative); Tricyclic Screen Negative (Negative)
[2025-05-23 19:05] LABS: Legionella Urinary Ag Negative (Negative); Strep pneumo Urine Ag NEGATIVE (NEGATIVE)
[2025-05-23] MEDS ORDERED: Acetaminophen 325 MG TAB PO PRN (19:15)
[2025-05-23] MEDS: Cyanocobalamin (Vitamin B-12) 1,000 MCG TAB PO SCH (20:59)
[2025-05-23] MEDS: Melatonin 3 MG TAB PO PRN (20:59)
[2025-05-23] MEDS: Folic Acid 1 MG TAB PO SCH (21:00)
[2025-05-23] MEDS: Famotidine 20 MG TAB PO SCH (21:01)
[2025-05-23] MEDS: Multivit, Therapeutic 1 TAB PO SCH (21:01)
[2025-05-24 06:15] LABS: #Basophils Less than 0.03 10x3/uL (0.0-0.2); #Eosinophils Less than 0.03 10x3/uL (0.0-0.7); #Monocytes 0.22 10x3/uL (0.11-0.59); #Neutrophils 8.66 10x3/uL (1.40-6.50); %Basophils 0.1 % (0.0-1.0); %Eosinophils 0.0 % (0.0-10.0); %Lymphocytes 4.7 % (21.0-51.0); %Monocytes 2.3 % (0.0-10.0); %Neutrophils 92.5 % (42.0-75.0); Hematocrit 51.0 % (42.0-52.0); Hemoglobin 15.7 g/dL (14.0-18.0); Mean Corpuscular Hemoglobin 32.0 pg (27.0-31.0); Mean Corpuscular Volume 104.1 fL (78.0-98.0); Platelet Count 181 10x3/uL (130-400); Red Blood Cell (RBC) Count 4.90 mill/uL (4.70-6.10); White Blood Cell (WBC) Count 9.37 10x3/uL (4.8-10.8)
[2025-05-24 06:30] LABS: Anion Gap 13 mmol/L (10-20); BUN (Urea Nitrogen) 21 mg/dL (8.4-25.7); Calc. Creatinine Clearance 75 mL/min (70-130); Calcium 8.9 mg/dL (7.8-10.44); Carbon Dioxide 28 mmol/L (22-29); Chloride 106 mmol/L (98-107); Glucose 163 mg/dL (70-105); Magnesium 1.8 mg/dL (1.6-2.6); Potassium 5.1 mmol/L (3.5-5.1); Sodium 142 mmol/L (136-145)
[2025-05-24] MEDS: Magnesium 2 GM/50 ML(in water) 2 GM in Premix 1 BAG IVPB SCH (07:04)
[2025-05-24] MEDS: dilTIAZem 30 MG TAB PO SCH ×2 (07:04→12:30)
[2025-05-24] MEDS: Aspirin 81 mg Enteric Coated Tablet PO SCH (09:00)
[2025-05-24] MEDS: Lisinopril 5 MG TAB PO SCH (09:00)
[2025-05-24] MEDS: Furosemide 20 MG TAB PO SCH (09:01)
[2025-05-24] MEDS: Thiamine 100 MG TAB PO SCH (20:03)
[2025-05-25 05:04] LABS: #Basophils Less than 0.03 10x3/uL (0.0-0.2); #Eosinophils Less than 0.03 10x3/uL (0.0-0.7); #Monocytes 0.29 10x3/uL (0.11-0.59); #Neutrophils 10.80 10x3/uL (1.40-6.50); %Basophils 0.0 % (0.0-1.0); %Eosinophils 0.0 % (0.0-10.0); %Lymphocytes 3.3 % (21.0-51.0); %Monocytes 2.5 % (0.0-10.0); %Neutrophils 93.7 % (42.0-75.0); Hematocrit 48.7 % (42.0-52.0); Hemoglobin 15.0 g/dL (14.0-18.0); Mean Corpuscular Hemoglobin 32.1 pg (27.0-31.0); Mean Corpuscular Volume 104.3 fL (78.0-98.0); Platelet Count 179 10x3/uL (130-400); Red Blood Cell (RBC) Count 4.67 mill/uL (4.70-6.10); White Blood Cell (WBC) Count 11.53 10x3/uL (4.8-10.8)
[2025-05-25 05:21] LABS: Anion Gap 14 mmol/L (10-20); BUN (Urea Nitrogen) 27 mg/dL (8.4-25.7); Calc. Creatinine Clearance 73 mL/min (70-130); Calcium 9.0 mg/dL (7.8-10.44); Carbon Dioxide 34 mmol/L (22-29); Chloride 99 mmol/L (98-107); Glucose 174 mg/dL (70-105); Magnesium 1.8 mg/dL (1.6-2.6); Potassium 4.9 mmol/L (3.5-5.1); Sodium 142 mmol/L (136-145)
[2025-05-25] MEDS: Magnesium 2 GM/50 ML(in water) 2 GM in Premix 1 BAG IVPB SCH (08:24)
[2025-05-25] MEDS: Furosemide 20 MG TAB PO SCH (08:59)
[2025-05-26 05:43] LABS: Anion Gap 15 mmol/L (10-20); BUN (Urea Nitrogen) 29 mg/dL (8.4-25.7); Calc. Creatinine Clearance 83 mL/min (70-130); Calcium 9.4 mg/dL (7.8-10.44); Carbon Dioxide 32 mmol/L (22-29); Chloride 98 mmol/L (98-107); Glucose 140 mg/dL (70-105); Magnesium 2.0 mg/dL (1.6-2.6); Potassium 4.9 mmol/L (3.5-5.1); Sodium 140 mmol/L (136-145)
[2025-05-26] MEDS: Magnesium 2 GM/50 ML(in water) 2 GM in Premix 1 BAG IVPB SCH (08:04)
[2025-05-27 05:13] LABS: Anion Gap 13 mmol/L (10-20); BUN (Urea Nitrogen) 30 mg/dL (8.4-25.7); Calc. Creatinine Clearance 93 mL/min (70-130); Calcium 9.3 mg/dL (7.8-10.44); Carbon Dioxide 34 mmol/L (22-29); Chloride 97 mmol/L (98-107); Glucose 102 mg/dL (70-105); Magnesium 2.0 mg/dL (1.6-2.6); Potassium 5.0 mmol/L (3.5-5.1); Sodium 139 mmol/L (136-145)
[2025-05-27] MEDS: Magnesium 2 GM/50 ML(in water) 2 GM in Premix 1 BAG IVPB SCH (08:13)
[2025-05-27] MEDS: predniSONE 20 MG TAB PO SCH (08:15)
[2025-05-28 05:54] LABS: Magnesium 1.9 mg/dL (1.6-2.6)
[2025-05-28 06:14] LABS: Chloride 96 mmol/L (98-107); Potassium 4.6 mmol/L (3.5-5.1); Sodium 141 mmol/L (136-145)
[2025-05-28 06:15] LABS: Calcium 9.4 mg/dL (7.8-10.44); Glucose 124 mg/dL (70-105)
[2025-05-28 06:17] LABS: Anion Gap 18 mmol/L (10-20); Carbon Dioxide 32 mmol/L (22-29)
[2025-05-28 06:19] LABS: BUN (Urea Nitrogen) 30 mg/dL (8.4-25.7); Calc. Creatinine Clearance 91 mL/min (70-130)
[2025-05-28] MEDS: Magnesium 2 GM/50 ML(in water) 2 GM in Premix 1 BAG IVPB SCH (08:12)
[2025-05-29 05:28] LABS: Anion Gap 17 mmol/L (10-20); BUN (Urea Nitrogen) 36 mg/dL (8.4-25.7); Calc. Creatinine Clearance 89 mL/min (70-130); Carbon Dioxide 32 mmol/L (22-29); Chloride 96 mmol/L (98-107); Potassium 4.8 mmol/L (3.5-5.1); Sodium 140 mmol/L (136-145)
[2025-05-29 05:29] LABS: Calcium 9.2 mg/dL (7.8-10.44); Glucose 107 mg/dL (70-105)
[2025-05-31 10:47] VITALS: BMI 18.0
[2025-06-01 11:14] VITALS: TEMP 97.6
[2025-06-01 15:40] VITALS: BP 110/75
== END 2025-06-01 19:11 | disposition home or self-care (01) | DRG 189 ==
LOC: ERS 14:45 → ERHOLD 17:11 → OBS 21:20
PROVIDERS: ADMIT Family Medicine; ATTEND Internal Medicine
DX: J96.21 Acute and chronic respiratory failure with hypoxia (principal); I21.A1 Myocardial infarction type 2; I50.32 Chronic diastolic (congestive) heart failure; Z59.00 Homelessness unspecified; J44.1 Chronic obstructive pulmonary disease with (acute) exacerbation; I11.0 Hypertensive heart disease with heart failure; F14.10 Cocaine abuse, uncomplicated; F17.210 Nicotine dependence, cigarettes, uncomplicated; I27.20 Pulmonary hypertension, unspecified; E83.42 Hypomagnesemia; Z86.718 Personal history of other venous thrombosis and embolism; Z79.52 Long term (current) use of systemic steroids; Z79.82 Long term (current) use of aspirin; Z79.899 Other long term (current) drug therapy; Z86.73 Personal history of transient ischemic attack (TIA), and cerebral infarction without residual deficits
CPT/HCPCS: 36415; 70450; 70486; 71045; 71046; 72131; 80048; 80053; 80061; 80306; 82805; 83036; 83605; 83735; 83880; 84443; 84484; 85025; 87449; 87637; 87899; 93005; 93010; 93306; 94640; 96374; 96375; J0696; J1650; J1940; J2919; J3475; J7512; J7611; J7626; J7644

== ENCOUNTER 2025-07-04 15:27 | Inpatient (IN) | payer OTHER ==
[2025-07-04] MEDS ORDERED: Dexamethasone 10 MG/ML VIAL ONE (15:59)
[2025-07-04] MEDS ORDERED: Albuterol 2.5 MG (3 mL) NEB ONE (15:59)
[2025-07-04] MEDS ORDERED: LevoFLOXacin 750 mg/D5W 150 ml Premix Bag ONE (16:00)
[2025-07-04] MEDS ORDERED: Magnesium 2 GM/50 ML BAG (IN WATER) ONE (16:00)
[2025-07-04 16:08] LABS: Actual Bicarbonate (HCO3v) 21.9 mEq/L (22-28); Analyzer IN Cardio ER; Base Excess -3.0 mEq/L (-2.0 to +3.0); Calcium, Ionized (venous) 1.10 mmol/L (1.16-1.32); Chloride (VBG) 103 mmol/L (98-106); Hematocrit-VBG 57 % (42.0-52.0); Hemoglobin (Hb) 19.3 g/dL (13.1-17.2); Potassium (VBG) 4.36 mmol/L (3.70-5.30); Sodium 138 mmol/L (133-146)
[2025-07-04 16:10] LABS: #Basophils Less than 0.03 10x3/uL (0.0-0.2); #Eosinophils 0.08 10x3/uL (0.0-0.7); #Monocytes 0.47 10x3/uL (0.11-0.59); #Neutrophils 2.50 10x3/uL (1.40-6.50); %Basophils 0.5 % (0.0-1.0); %Eosinophils 2.0 % (0.0-10.0); %Lymphocytes 24.9 % (21.0-51.0); %Monocytes 11.5 % (0.0-10.0); %Neutrophils 60.9 % (42.0-75.0); Hematocrit 55.6 % (42.0-52.0); Hemoglobin 17.6 g/dL (14.0-18.0); Mean Corpuscular Hemoglobin 31.6 pg (27.0-31.0); Mean Corpuscular Volume 99.8 fL (78.0-98.0); Platelet Count 249 10x3/uL (130-400); Red Blood Cell (RBC) Count 5.57 mill/uL (4.70-6.10); White Blood Cell (WBC) Count 4.10 10x3/uL (4.8-10.8)
[2025-07-04 16:30] LABS: ALT (SGPT) 13 U/L (Less than 45); AST (SGOT) 44 U/L (11-34); Albumin 3.6 g/dL (3.1-4.5); Alkaline Phosphatase 70 U/L (40-110); Anion Gap 17 mmol/L (10-20); BUN (Urea Nitrogen) 14 mg/dL (8.4-25.7); Bilirubin, Total 0.8 mg/dL (0.3-1.2); Calc. Creatinine Clearance 0 mL/min (70-130); Calcium 9.5 mg/dL (7.8-10.44); Carbon Dioxide 22 mmol/L (22-29); Chloride 106 mmol/L (98-107); Globulin 3.5 g/dL (2.4-3.5); Glucose 108 mg/dL (70-105); Potassium 5.5 mmol/L (3.5-5.1); Sodium 139 mmol/L (136-145)
[2025-07-04] MEDS ORDERED: Acetaminophen 325 MG TAB PO PRN (18:14)
[2025-07-04] MEDS ORDERED: Ondansetron PF 4 MG/2 ML Vial IVP PRN (18:14)
[2025-07-04] MEDS ORDERED: Senokot S 8.6-50 MG TAB PO PRN (18:14)
[2025-07-04] MEDS ORDERED: Calcium Carbonate 500 MG ChewTAB PO PRN (18:14)
[2025-07-04] MEDS ORDERED: Benzonatate 100 MG CAP PO PRN (18:20)
[2025-07-04 20:02] VITALS: BMI 18.2
[2025-07-04] MEDS: Mometasone 200 MCG/Formoterol 5 MCG 120 PUFF INHALER INH SCH (21:36)
[2025-07-05 04:19] LABS: #Basophils Less than 0.03 10x3/uL (0.0-0.2); #Eosinophils Less than 0.03 10x3/uL (0.0-0.7); #Monocytes 0.04 10x3/uL (0.11-0.59); #Neutrophils 2.69 10x3/uL (1.40-6.50); %Basophils 0.0 % (0.0-1.0); %Eosinophils 0.0 % (0.0-10.0); %Lymphocytes 9.0 % (21.0-51.0); %Monocytes 1.3 % (0.0-10.0); %Neutrophils 89.7 % (42.0-75.0); Hematocrit 49.3 % (42.0-52.0); Hemoglobin 15.1 g/dL (14.0-18.0); Mean Corpuscular Hemoglobin 31.2 pg (27.0-31.0); Mean Corpuscular Volume 101.9 fL (78.0-98.0); Platelet Count 213 10x3/uL (130-400); Red Blood Cell (RBC) Count 4.84 mill/uL (4.70-6.10); White Blood Cell (WBC) Count 3.00 10x3/uL (4.8-10.8)
[2025-07-05 04:51] LABS: ALT (SGPT) 12 U/L (Less than 45); AST (SGOT) 16 U/L (11-34); Albumin 3.0 g/dL (3.1-4.5); Alkaline Phosphatase 59 U/L (40-110); Anion Gap 12 mmol/L (10-20); BUN (Urea Nitrogen) 16 mg/dL (8.4-25.7); Bilirubin, Total 0.5 mg/dL (0.3-1.2); Calc. Creatinine Clearance 73 mL/min (70-130); Calcium 8.8 mg/dL (7.8-10.44); Carbon Dioxide 28 mmol/L (22-29); Chloride 105 mmol/L (98-107); Globulin 2.5 g/dL (2.4-3.5); Glucose 304 mg/dL (70-105); Magnesium 1.9 mg/dL (1.6-2.6); Potassium 4.8 mmol/L (3.5-5.1); Sodium 140 mmol/L (136-145)
[2025-07-05 09:58] VITALS: BMI 18.3
[2025-07-05] MEDS: Aspirin Chewable 81 MG TAB PO SCH (10:51)
[2025-07-05 11:53] VITALS: BP 120/86; TEMP 98.6
== END 2025-07-05 16:45 | disposition home or self-care (01) | DRG 189 ==
LOC: ERS 15:27 → SUATTDRO 15:27 → 2NO 18:12
PROVIDERS: ADMIT Internal Medicine; ATTEND Family Medicine
DX: J96.01 Acute respiratory failure with hypoxia (principal); I50.32 Chronic diastolic (congestive) heart failure; J44.1 Chronic obstructive pulmonary disease with (acute) exacerbation; N17.9 Acute kidney failure, unspecified; F15.10 Other stimulant abuse, uncomplicated; F17.210 Nicotine dependence, cigarettes, uncomplicated; J45.909 Unspecified asthma, uncomplicated; Z79.82 Long term (current) use of aspirin; Z79.899 Other long term (current) drug therapy; Z86.73 Personal history of transient ischemic attack (TIA), and cerebral infarction without residual deficits
CPT/HCPCS: 36415; 71045; 80053; 82805; 83605; 83735; 83880; 84484; 85025; 87040; 87428; 93005; 94640; 94760; 96365; 96366; 96375; J1100; J1956; J2919; J3475; J7030; J7611